=== PATIENT | male | born 1970 | race Caucasian/White ===

== ENCOUNTER 2017-06-09 12:49 | Day surgery (SDC) | payer OTHER ==
[2017-06-09] MEDS ORDERED: PROPOFOL 20 ML (14:43)
== END 2017-06-09 15:55 | disposition home or self-care (01) ==
LOC: GIL 12:49
DX: K29.70 Gastritis, unspecified, without bleeding (principal); I10 Essential (primary) hypertension
CPT/HCPCS: 43239; 88305; 88312